=== PATIENT | male | born 1985 | race Caucasian/White ===

== ENCOUNTER 2025-03-02 02:18 | Emergency (ER) | payer OTHER ==
[~2025-03-02] VITALS: Ht 185.4 cm; Wt 98.4 kg
[2025-03-02 03:04] LABS: Hematocrit 41.2 % (37.0-53.0); Hemoglobin 14.4 g/dL (13.5-17.5); Mean Corpuscular HGB Conc 35.0 g/dL (31.5-36.5); Mean Corpuscular Volume 87 fL (80-100); NRBC ABSOLUTE 0.00 K/mm3 (0.00-0.02); NRBC Auto 0.0 /100 WBC (0.0-0.2); Platelet Count 340 K/mm3 (150-400); RDW Coefficient Variation 11.9 % (11.7-14.2); RDW Standard Deviation 38.5 fL (35.1-46.3)
[2025-03-02 03:21] LABS: Alanine Aminotransfer (ALT/SGP 65.0 U/L (12-78); Albumin, Blood 3.5 g/dL (3.4-5.0); Albumin/Globulin Ratio 0.9 (0.8-1.8); Anion Gap 9.0 mmol/L (3-11); Aspartate Aminotrans (AST/SGOT 27.0 U/L (12-37); Bilirubin, Total 0.4 mg/dL (0.1-1.0); Blood Urea Nitrogen 11.0 mg/dL (8-24); CO2, Blood 25.0 mmol/L (21-32); Calcium, Blood 8.9 mg/dL (8.5-10.1); Chloride, Blood 107.0 mmol/L (98-108); Creatinine, Blood 0.91 mg/dL (0.60-1.20); Globulin, Blood 3.7 g/dL (2.2-4.0); Glucose, Blood 124.0 mg/dL (70-99); Potassium, Blood 3.8 mmol/L (3.5-5.5); Sodium, Blood 137.0 mmol/L (136-145); Total Protein, Blood 7.2 g/dL (6.4-8.2)
[2025-03-02 03:39] LABS: BASOPHILS ABSOLUTE MAN 0.00 K/mm3 (0.00-0.23); BASOPHILS PERCENT MAN 0 % (0-2); EOSINOPHILS ABSOLUTE MAN 0.12 K/mm3 (0.00-0.68); EOSINOPHILS PERCENT MAN 1 % (0-6); LYMPHOCYTES ABSOLUTE MAN 2.21 K/mm3 (0.84-5.20); LYMPHOCYTES PERCENT MAN 18 % (21-46); MONOCYTES ABSOLUTE MAN 0.12 K/mm3 (0.16-1.47); MONOCYTES PERCENT MAN 1 % (4-13); NEUTROPHILS ABSOLUTE MAN 9.84 K/mm3 (1.96-9.15); SEG NEUTROPHILS PERCENT MAN 80 % (41-73)
[2025-03-02] MEDS ORDERED: HYDHCL25 PO (19:17)
== END 2025-03-02 03:58 | disposition home or self-care (01) ==
LOC: ER 02:18
PROVIDERS: Student in an Organized Health Care Education/Training Program
DX: K64.4 Residual hemorrhoidal skin tags (principal); K92.1 Melena
CPT/HCPCS: 80053; 85025; 86850; 86900; 86901; 93005; 93010; 99283-25

== ENCOUNTER 2025-03-02 13:29 | Emergency (ER) | payer OTHER ==
[~2025-03-02] VITALS: Ht 185.4 cm; Wt 98.4 kg
[2025-03-02 14:11] LABS: Hematocrit 39.0 % (37.0-53.0); Hemoglobin 13.6 g/dL (13.5-17.5); Mean Corpuscular HGB Conc 34.9 g/dL (31.5-36.5); Mean Corpuscular Volume 85 fL (80-100); NRBC ABSOLUTE 0.00 K/mm3 (0.00-0.02); NRBC Auto 0.0 /100 WBC (0.0-0.2); Platelet Count 471 K/mm3 (150-400); RDW Coefficient Variation 11.9 % (11.7-14.2); RDW Standard Deviation 36.5 fL (35.1-46.3)
[2025-03-02 14:27] LABS: Alanine Aminotransfer (ALT/SGP 58.0 U/L (12-78); Albumin, Blood 3.4 g/dL (3.4-5.0); Albumin/Globulin Ratio 0.9 (0.8-1.8); Anion Gap 12.0 mmol/L (3-11); Aspartate Aminotrans (AST/SGOT 22.0 U/L (12-37); Bilirubin, Total 0.5 mg/dL (0.1-1.0); Blood Urea Nitrogen 11.0 mg/dL (8-24); CO2, Blood 22.0 mmol/L (21-32); Calcium, Blood 8.8 mg/dL (8.5-10.1); Chloride, Blood 106.0 mmol/L (98-108); Creatinine, Blood 0.8 mg/dL (0.60-1.20); Globulin, Blood 3.8 g/dL (2.2-4.0); Glucose, Blood 189.0 mg/dL (70-99); Potassium, Blood 3.6 mmol/L (3.5-5.5); Sodium, Blood 136.0 mmol/L (136-145); Total Protein, Blood 7.2 g/dL (6.4-8.2)
[2025-03-02 14:30] LABS: BASOPHILS ABSOLUTE MAN 0.21 K/mm3 (0.00-0.23); BASOPHILS PERCENT MAN 2 % (0-2); LYMPHOCYTES % ATYPICAL MANUAL 2 % (0-0)
[2025-03-02 14:31] LABS: BAND PERCENT MAN 1 % (0-8); EOSINOPHILS ABSOLUTE MAN 0.21 K/mm3 (0.00-0.68); EOSINOPHILS PERCENT MAN 2 % (0-6); LYMPHOCYTES ABSOLUTE MAN 2.61 K/mm3 (0.84-5.20); LYMPHOCYTES PERCENT MAN 22 % (21-46); MONOCYTES ABSOLUTE MAN 0.76 K/mm3 (0.16-1.47); MONOCYTES PERCENT MAN 7 % (4-13); NEUTROPHILS ABSOLUTE MAN 7.08 K/mm3 (1.96-9.15); SEG NEUTROPHILS PERCENT MAN 64 % (41-73)
[2025-03-02] MEDS ORDERED: NS 1,000 ML IR ONE (14:40)
[2025-03-02] MEDS ORDERED: NS 1,000 ML IV SCH ×2 (14:40→16:50)
[2025-03-02] MEDS ORDERED: HYDHCL25 PO (19:17)
== END 2025-03-02 19:30 | disposition home or self-care (01) ==
LOC: ER 13:29
PROVIDERS: Emergency Medicine
DX: K91.841 Postprocedural hemorrhage of a digestive system organ or structure following other procedure (principal); Z98.890 Other specified postprocedural states
CPT/HCPCS: 74177; 80053; 85025; 86850; 86900; 86901; 93005; 93010; 96360-59; 96361; 99284-25; A9270; J7030; Q9967

== ENCOUNTER 2025-03-14 19:40 | Emergency (ER) | payer OTHER ==
[~2025-03-14] VITALS: Ht 185.4 cm; Wt 98.4 kg
[~2025-03-14 19:40] MED LIST: HYDHCL25 PO
[2025-03-14] MEDS ORDERED: Triamcinolone Inj Susp 40 MG / ML 1ML Vial IM ONE (19:55)
[2025-03-14] MEDS ORDERED: PRED20 PO (20:15)
== END 2025-03-14 20:20 | disposition home or self-care (01) ==
LOC: ER 19:40
DX: L23.7 Allergic contact dermatitis due to plants, except food (principal); Z79.899 Other long term (current) drug therapy
CPT/HCPCS: 96372; 99282-25; J3301